=== PATIENT | female | born 1970 | race African-American/Black ===

== ENCOUNTER 2019-03-04 11:43 | Emergency (ER) | payer BC, MEDICAID ==
[~2019-03-04] VITALS: Ht 157.5 cm; Wt 64.5 kg
[2019-03-04] MEDS ORDERED: NITROGLYCERIN 0.4MG TABLET SL SL PRN (13:45)
[2019-03-04] MEDS ORDERED: ASPIRIN 81MG TABLET PO ONE (13:45)
[2019-03-04 14:13] LABS: BASOPHILS % 0.7 % (0.0-2.0); EOSINOPHILS % 0.5 % (0.0-5.0); HEMATOCRIT. 38.5 % (36.0-48.0); HEMOGLOBIN. 12.9 g/dL (12.0-16.0); LYMPHOCYTES % 25.6 % (20.0-50.0); MEAN CORPUSCULAR HEMOGLOBIN 31.1 pg (28.0-32.0); MEAN CORPUSCULAR VOLUME 93.2 fL (81.0-99.0); MEAN PLATELET VOLUME 8.5 fl (7.4-10.4); MONOCYTES % 8.5 % (2.0-8.0); NEUTROPHILS % 64.7 % (40.0-76.0); PLATELET 203 x1000/uL (130-400); RED BLOOD CELL COUNT 4.13 mill/uL (4.2-5.4); RED CELL DISTRIBUTION WIDTH 13.1 % (11.6-14.6)
[2019-03-04 14:16] LABS: CHLORIDE 107 mEq/L (98-107)
[2019-03-04 14:18] LABS: HCG SCREEN NEGATIVE
[2019-03-04 17:58] VITALS: BP 122/70
== END 2019-03-04 18:02 | disposition home or self-care (01) ==
LOC: ER 11:43
DX: R07.9 Chest pain, unspecified (principal)
CPT/HCPCS: 36415; 71045; 80053; 83880; 84484; 84703; 85025; 93005; 99284; Z7610